=== PATIENT | female | born 1960 | race Caucasian/White ===

== ENCOUNTER → 2016-08-06 | Outpatient (CLI) | payer OTHER ==
[~2016-08-06] MED LIST: ADVA250A INH; ADVAI250I PO; CARV6.25 PO; CARV6.252 PO; CETI10 PO; CETI10CH PO; CONTOUR2 XX; GLUCTAB OR; LISI10TA PO; LISI20TA PO; METF500T PO; VENTAER INH
[2016-08-06 09:18] LABS: HEMATOCRIT 35.4 % (35.0-46.0); MEAN CELL VOLUME 87.7 FL (80.0-100.0); MEAN CORPUSCULAR HEMOGLOBIN 29.7 PG (27.0-34.0); MEAN CORPUSCULAR HGB CONC 33.9 % (32.0-36.0); PLATELET COUNT 342 TH/MM3 (150-450); RED BLOOD COUNT 4.04 MIL/MM3 (4.00-5.30); REVIEW FLAG FINAL; WHITE BLOOD COUNT 6.6 TH/MM3 (4.0-11.0)
[2016-08-06 09:51] LABS: ALKALINE PHOSPHATASE 101 U/L (45-117); ALT (GPT) 25 U/L (10-53); ANION GAP 7 MEQ/L (5-15); AST (GOT) 13 U/L (15-37); BICARBONATE 29.4 MEQ/L (21.0-32.0); BLOOD UREA NITROGEN 17 MG/DL (7-18); CHLORIDE 100 MEQ/L (98-107); GLOMERULAR FILTRATION RATE 74 ML/MIN (>89); GLUCOSE,FASTING 101 MG/DL (74-99); HDL CHOLESTEROL 59.8 MG/DL (40.0-60.0); LDL CHOLESTEROL 94 MG/DL (0-99); POTASSIUM 4.5 MEQ/L (3.5-5.1); SODIUM (NA) 136 MEQ/L (136-145); TOTAL BILIRUBIN ADULT 0.3 MG/DL (0.2-1.0)
[2016-08-06 10:31] LABS: HEMOGLOBIN A1a 1.1 %; HEMOGLOBIN LA1C 2.1 %; HEMOGLOBIN P3 5.7 %
== END ==
LOC: CLAB 08:52
PROVIDERS: ATTEND Physician Assistant Medical
DX: I10 Essential (primary) hypertension (principal); E11.9 Type 2 diabetes mellitus without complications
CPT/HCPCS: 36415; 80053; 80061; 83036; 84443; 85027

== ENCOUNTER 2016-12-20 11:21 | Emergency (ER) | payer OTHER ==
[~2016-12-20] VITALS: Ht 162.6 cm; Wt 85.0 kg
[~2016-12-20 11:21] MED LIST changes: -ADVAI250I PO; -CARV6.252 PO; -CETI10CH PO; -CONTOUR2 XX; -GLUCTAB OR; -LISI10TA PO
[2016-12-20 11:22] VITALS: BP 126/80; PULSE 114; RESP 24; TEMP 99; O2SAT 95
[2016-12-20] MEDS ORDERED: RESP: ALBUTEROL 2.5 MG/IPRATROPIUM 0.5 MG NEB (SCH) NEB ONE (12:00)
[2016-12-20] MEDS ORDERED: IBUPROFEN 400 MG TAB PO ONE (12:00)
[2016-12-20] MEDS ORDERED: ONDANSETRON ODT 4 MG TAB PO ONE (12:00)
--- NOTE | 2016-12-20 12:32 | RADRPT ---
EXAM DATE/TIME: 12/20/2016 12:19 [facility] COMPARISON: No previous studies available for comparison. INDICATIONS : Congestion, shortness of breath, and cough. MEDICAL HISTORY : None. SURGICAL HISTORY : None. ENCOUNTER: Initial ACUITY: 1 day PAIN SCORE: 0/10 LOCATION: Bilateral chest FINDINGS: PA and lateral views of the chest demonstrate the lungs to be symmetrically aerated without evidence of mass, infiltrate or effusion. The cardiomediastinal contours are unremarkable. Osseous structure s are intact. CONCLUSION: No acute disease. David Triplett MD on December 20, 2016 at 12:30 Board Certified Radiologist. This report was verified electronically.
[2016-12-20] MEDS ORDERED: ZITHTAB PO (13:58)
--- NOTE | 2016-12-20 13:58 | PD ---
HPI Chief Complaint: Cold / Flu Symptoms Time Seen by Provider: 11:35 Travel History International Travel<30 days: No Contact w/Intl Traveler<30days: No Traveled to known affect area: No History of Present Illness HPI Patient is a 56 year old female who comes in complaining of cough and congestion for the past week. She says that she felt better for a day and then got worse again. She says she feels like she needs a breathing treatment. She says she has had chills and felt feverish, but has not taken her temperature. She had vomiting last night, but was able to drink coffee this morning without vomiting. She denies any abdominal pain. PFSH Past Medical History Asthma: Yes Autoimmune Disease: No Blood Disorders: No Heart Rhythm Problems: No Cancer: No Cardiovascular Problems: Yes High Cholesterol: No Congestive Heart Failure: No COPD: No Diabetes: Yes Patient Takes Glucophage: Yes (metformin 500 bid) Diminished Hearing: No Glaucoma: No Hypertension: Yes Psychiatric: No Respiratory: Yes (ASTHMA) Myocardial Infarction: No Sleep Apnea: No Menopausal: Yes : 3 Para: 3 Tubal Ligation: Yes Past Surgical History Genitourinary Surgery: No Pacemaker: No Tonsillectomy: Yes Other Surgery: Yes (ESOPHAGEAL DILATION) Social History Alcohol Use: No Tobacco Use: No Substance Use: No Allergies-Medications (Allergen,Severity, Reaction): Coded Allergies: No Known Allergies (Verified , 08/12/16) Reported Meds & Prescriptions Reported Meds & Active Scripts Active Lisinopril-Hctz 20-12.5 Mg Tab 1 Tab PO DAILY Coreg (Carvedilol) 6.25 Mg Tab 6.25 Mg PO BID Metformin (Metformin HCl) 500 Mg Tab 500 Mg PO BIDPC With meals Ventolin Hfa 18 GM Inh (Albuterol Sulfate) 90 Mcg/Act Aer 1 Puff INH Q4H PRN Advair Diskus Inh (Fluticasone-Salmeterol Inh) 250-50 Mcg/Blist Aer 1 Puff INH BID Rinse mouth after use. Reported Cetirizine (Cetirizine HCl) 10 Mg Tab 10 Mg PO DAILY Review of Systems Except as stated in HPI: all other systems reviewed are Neg General / Constitutional: No: Fever, Chills HENT: No: Headaches, Lightheadedness Cardiovascular: No: Chest Pain or Discomfort Respiratory: Positive: Cough, Shortness of Breath Gastrointestinal: Positive: Nausea, Vomiting, No: Abdominal Pain Genitourinary: No: Dysuria Musculoskeletal: Positive: Myalgias, No: Edema Skin: No Rash, No Change in Pigmentation Neurologic: No: Weakness, Dizziness Physical Exam Narrative GENERAL: Awake and alert, in no acute distress. SKIN: Focused skin assessment warm/dry. HEAD: Atraumatic. Normocephalic. EYES: Pupils equal and round. No scleral icterus. ENT: Mucous membranes pink and moist. NECK: Trachea midline. No JVD. CARDIOVASCULAR: Regular rate and rhythm. No murmur appreciated. RESPIRATORY: No accessory muscle use. Clear to auscultation. Breath sounds equal bilaterally. GASTROINTESTINAL: Abdomen soft, non-tender, nondistended. MUSCULOSKELETAL: No obvious deformities. No clubbing. No cyanosis. No edema. NEUROLOGICAL: Awake and alert. No obvious cranial nerve deficits. Motor grossly within normal limits. Normal speech. PSYCHIATRIC: Appropriate mood and affect; insight and judgment normal. Data Data Last Documented VS Vital Signs Date Time Temp Pulse Resp B/P Pulse Ox O2 Delivery O2 Flow Rate FiO2 12/20/16 11:39 18 Room Air 12/20/16 11:22 99.0 114 126/80 95 Orders Albuterol-Ipratropium Neb (Duoneb Neb) (12/20/16 12:00) Ibuprofen (Motrin) (12/20/16 12:00) Ondansetron Odt (Zofran Odt) (12/20/16 12:00) Chest, Pa & Lat (12/20/16 ) MDM Medical Decision Making Medical Screen Exam Complete: Yes Emergency Medical Condition: Yes Medical Record Reviewed: Yes Differential Diagnosis Viral illness versus bronchitis versus pneumonia Narrative Course Patient is a 56-year-old female comes in complaining of cough and congestion. Exam shows no acute abnormalities. She is requesting a breathing treatment. Given 1 DuoNeb. Given ibuprofen and Zofran. She reports feeling better. She is advised to use her albuterol inhaler at home. We'll discharge with azithromycin. Chest x-ray shows no acute abnormalities. Diagnosis Primary Impression: Bronchitis Patient Instructions: Acute Bronchitis (ED), General Instructions Additional Instructions: Use your albuterol inhaler as needed for cough and shortness of breath. Take all of the antibiotic. Follow-up with her doctor. Return to the emergency department as needed for any worsening symptoms. Scripts Azithromycin (Zithromax Z-Ramone)250 Mg [id number] Mg PO DIRECTED #1 DSPK Ref 0 500 MG (2 tabs) day 1, then 1 tab days 2-5. Prov:Crystal Sims MD 12/20/16 Disposition: 01 DISCHARGE HOME Condition: Stable Crystal Sims MD Dec 20, 2016 13:58
== END 2016-12-20 14:11 | disposition home or self-care (01) ==
LOC: NEPD 11:21
DX: J40 Bronchitis, not specified as acute or chronic (principal); R11.2 Nausea with vomiting, unspecified; J45.909 Unspecified asthma, uncomplicated; E11.9 Type 2 diabetes mellitus without complications; I10 Essential (primary) hypertension; Z79.52 Long term (current) use of systemic steroids; Z79.899 Other long term (current) drug therapy
CPT/HCPCS: 71020; 94664; 99283

== ENCOUNTER 2016-12-24 02:32 | Observation (INO) | payer OTHER ==
[2016-12-24] VITALS (8 sets, daily range): BP systolic 102–136; BP diastolic 55–81; PULSE 77–86; RESP 16–19; TEMP 98.4–99; O2SAT 92–98
[~2016-12-24] VITALS: Ht 162.6 cm; Wt 85.0 kg
[~2016-12-24 02:32] MED LIST changes: +ZITHTAB PO
[2016-12-24] MEDS ORDERED: SODIUM CHLOR 0.9% 1000 ML INJ 1,000 ML IV ONE (02:54)
[2016-12-24] MEDS ORDERED: SODIUM CHLORIDE 0.9% FLUSH 10 ML FLUSH IVF PRN (03:00)
[2016-12-24 03:17] LABS: AUTOMATED NEUTROPHIL # 3.1 TH/MM3 (1.8-7.7); BASOPHIL % 0.4 % (0.0-2.0); EOSINOPHIL % 0.8 % (0.0-4.0); HEMATOCRIT 34.4 % (35.0-46.0); HEMO FLAGS DIFF FINAL; LYMPH % 29.7 % (9.0-44.0); LYMPHOCYTE # 1.6 TH/MM3 (1.0-4.8); MEAN CELL VOLUME 88.2 FL (80.0-100.0); MEAN CORPUSCULAR HEMOGLOBIN 30.3 PG (27.0-34.0); MEAN CORPUSCULAR HGB CONC 34.3 % (32.0-36.0); MONO % 11.7 % (0.0-8.0); NEUT % 57.4 % (16.0-70.0); PLATELET COUNT 265 TH/MM3 (150-450); RED CELL DISTRIBUTION WIDTH 13.3 % (11.6-17.2); WHITE BLOOD COUNT 5.4 TH/MM3 (4.0-11.0)
--- NOTE | 2016-12-24 03:19 | RADRPT ---
EXAM DATE/TIME: 12/24/2016 03:09 [facility] COMPARISON: No previous studies available for comparison. INDICATIONS : Left ankle pain post fall. MEDICAL HISTORY : None. SURGICAL HISTORY : None. ENCOUNTER: Initial ACUITY: 1 day PAIN SCORE: 4/10 LOCATION: Left ankle. FINDINGS: Three view exam was performed of the left ankle. The bony structures are in normal alignment. No ev idence of fracture, dislocation, or soft tissue swelling. The ankle mortise is intact. No radiopaqu e foreign bodies are seen. Bony mineralization is normal. There is a heel spur plantar surface of th e calcaneus. CONCLUSION: No acute fracture or joint dislocation. Brett Hamilton MD on December 24, 2016 at 3:17 Board Certified Radiologist. This report was verified electronically.
--- NOTE | 2016-12-24 03:19 | RADRPT ---
EXAM DATE/TIME: 12/24/2016 03:07 [facility] COMPARISON: No previous studies available for comparison. INDICATIONS : Right ankle pain post fall. MEDICAL HISTORY : None. SURGICAL HISTORY : None. ENCOUNTER: Initial ACUITY: 1 day PAIN SCORE: 4/10 LOCATION: Right ankle. FINDINGS: Three view exam was performed of the right ankle. The bony structures are in normal alignment. No e vidence of fracture, dislocation. There is soft tissue swelling around the lateral malleolus. The an kle mortise is intact. No radiopaque foreign bodies are seen. Bony mineralization is normal. Small heel spur. CONCLUSION: Soft tissue swelling along the lateral malleolus. No acute fracture or joint dislocation. Brett Hamilton MD on December 24, 2016 at 3:16 Board Certified Radiologist. This report was verified electronically.
--- NOTE | 2016-12-24 03:19 | RADRPT ---
EXAM DATE/TIME: 12/24/2016 03:06 [facility] COMPARISON: CHEST SINGLE AP, October 31, 2014, 0:51. INDICATIONS : Syncopal episode. MEDICAL HISTORY : None. SURGICAL HISTORY : None. ENCOUNTER: Initial ACUITY: 1 day PAIN SCORE: 0/10 LOCATION: Bilateral chest FINDINGS: A single view of the chest demonstrates the lungs to be symmetrically aerated without evidence of mas s, infiltrate or effusion. The cardiomediastinal contours are unremarkable. Osseous structures are intact. CONCLUSION: No acute disease. No significant change has occurred. Brett Hamilton MD on December 24, 2016 at 3:18 Board Certified Radiologist. This report was verified electronically.
--- NOTE | 2016-12-24 03:21 | RADRPT ---
EXAM DATE/TIME: 12/24/2016 03:15 [facility] COMPARISON: No previous studies available for comparison. INDICATIONS : Syncope. RADIATION DOSE: 49.83 CTDIvol (mGy) MEDICAL HISTORY : None SURGICAL HISTORY : None. ENCOUNTER: Initial ACUITY: 1 day PAIN SCALE: 6/10 LOCATION: cranial TECHNIQUE: Multiple contiguous axial images were obtained of the head. Using automated exposure control and adj ustment of the mA and/or kV according to patient size, radiation dose was kept as low as reasonably a chievable to obtain optimal diagnostic quality images. DICOM format image data is available electro nically for review and comparison. FINDINGS: CEREBRUM: The ventricles are normal for age. No evidence of midline shift, mass lesion, hemorrhage or acute in farction. No extra-axial fluid collections are seen. POSTERIOR FOSSA: The cerebellum and brainstem are intact. The 4th ventricle is midline. The cerebellopontine angle i s unremarkable. EXTRACRANIAL: The visualized portion of the orbits is intact. Mild chronic bilateral maxillary sinus disease. SKULL: The calvaria is intact. No evidence of skull fracture. CONCLUSION: Unremarkable CT scan of the brain. Brett Hamilton MD on December 24, 2016 at 3:18 Board Certified Radiologist. This report was verified electronically.
[2016-12-24 03:29] LABS: ALT (GPT) 30 U/L (10-53); ANION GAP 13 MEQ/L (5-15); AST (GOT) 27 U/L (15-37); BICARBONATE 23.2 MEQ/L (21.0-32.0); BLOOD UREA NITROGEN 22 MG/DL (7-18); CHLORIDE 101 MEQ/L (98-107); GLOMERULAR FILTRATION RATE 67 ML/MIN (>89); MAGNESIUM 1.7 MG/DL (1.5-2.5); POTASSIUM 3.5 MEQ/L (3.5-5.1); SODIUM (NA) 137 MEQ/L (136-145)
[2016-12-24 03:32] LABS: APTT (PATIENT) 25.8 SEC (24.3-30.1); PROTHROMBIN TIME - PATIENT 10.7 SEC (9.8-11.6)
[2016-12-24 03:33] LABS: ALKALINE PHOSPHATASE 81 U/L (45-117); TOTAL BILIRUBIN ADULT 0.3 MG/DL (0.2-1.0)
[2016-12-24 03:39] LABS: CREATINE KINASE 48 U/L (26-192)
[2016-12-24 03:44] LABS: BACTERIA, URINE MOD /hpf; BLOOD, URINE NEG (NEG); COMMENT (UR) CULTURE INDICATED; CULTURE IF INDICATED CULTURE INDICATED; GLUCOSE,URINE NEG (NEG); HYALINE CAST, URINE 1 /lpf (RARE); KETONE, URINE 10 mg/dL (NEG); MUCUS URINE FEW /lpf (OCC); NITRITE,URINE NEG (NEG); RENAL EPITHELIAL CELLS <1 /hpf; SQUAMOUS EPITHELIAL CELL URINE 5 /hpf (0-5); URINE COLOR YELLOW (YELLW/STRAW)
--- NOTE | 2016-12-24 04:10 | PD ---
HPI Chief Complaint: Syncope/Near-Syncope Time Seen by Provider: 03:53 Travel History International Travel<30 days: No Contact w/Intl Traveler<30days: No Traveled to known affect area: No History of Present Illness HPI Patient is a 56-year-old female with history of hypertension, hyperlipidemia who presents to emergency room after syncopal episode. She reports that she got up to use the restroom tonight, reports that she got to the bathroom and "passed out." Patient reports that she landed on her wooden floor, reports that she was out for a few minutes. Patient's was at bedside, reports that he had to put his hand into his 's mother and give her mouth to mouth until she regained consciousness. Reports that when this happened, patient appeared diaphoretic and pale. Patient denies any chest pain or shortness breath at this time. Patient reports only complains of bilateral ankle pain. Patient reports that she was recently treated for bronchitis here at [facility], reports that she is currently taking zpack [facility] Past Medical History Asthma: Yes Autoimmune Disease: No Blood Disorders: No Heart Rhythm Problems: No Cancer: No Cardiovascular Problems: Yes High Cholesterol: No Congestive Heart Failure: No COPD: No Diabetes: Yes Patient Takes Glucophage: No Diminished Hearing: No Glaucoma: No Hypertension: Yes Psychiatric: No Respiratory: Yes (ASTHMA) Myocardial Infarction: No Sleep Apnea: No Tetanus Vaccination: > 5 Years Influenza Vaccination: No Menopausal: Yes : 3 Para: 3 Tubal Ligation: Yes Past Surgical History Genitourinary Surgery: No Pacemaker: No Tonsillectomy: Yes Other Surgery: Yes (ESOPHAGEAL DILATION) Social History Alcohol Use: No Tobacco Use: No Substance Use: No Allergies-Medications (Allergen,Severity, Reaction): Coded Allergies: No Known Allergies (Verified , 12/24/16) Reported Meds & Prescriptions Reported Meds & Active Scripts Active Zithromax Z-Ramone (Azithromycin) 250 Mg Dspk 250 Mg PO DIRECTED 500 MG (2 tabs) day 1, then 1 tab days 2-5. Lisinopril-Hctz 20-12.5 Mg Tab 1 Tab PO DAILY Coreg (Carvedilol) 6.25 Mg Tab 6.25 Mg PO BID Metformin (Metformin HCl) 500 Mg Tab 500 Mg PO BIDPC With meals Ventolin Hfa 18 GM Inh (Albuterol Sulfate) 90 Mcg/Act Aer 1 Puff INH Q4H PRN Advair Diskus Inh (Fluticasone-Salmeterol Inh) 250-50 Mcg/Blist Aer 1 Puff INH BID Rinse mouth after use. Reported Cetirizine (Cetirizine HCl) 10 Mg Tab 10 Mg PO DAILY Review of Systems General / Constitutional: No: Fever Eyes: No: Visual changes HENT: No: Headaches Cardiovascular: No: Chest Pain or Discomfort Respiratory: No: Shortness of Breath Gastrointestinal: No: Abdominal Pain Genitourinary: No: Dysuria Musculoskeletal: No: Pain Skin: No Rash Neurologic: Positive: Syncope, No: Weakness Psychiatric: No: Depression Endocrine: No: Polydipsia Hematologic/Lymphatic: No: Easy Bruising Physical Exam Narrative GENERAL: NAD, Nontoxic SKIN: Focused skin assessment warm/dry. Abrasion to forehead HEAD: Atraumatic. Normocephalic. EYES: Pupils equal and round. No scleral icterus. No injection or drainage. ENT: No nasal bleeding or discharge. Mucous membranes pink and moist. NECK: Trachea midline. No JVD. CARDIOVASCULAR: Regular rate and rhythm. No murmur appreciated. RESPIRATORY: No accessory muscle use. Clear to auscultation. Breath sounds equal bilaterally. GASTROINTESTINAL: Abdomen soft, non-tender, nondistended. Hepatic and splenic margins not palpable. MUSCULOSKELETAL: No obvious deformities. No clubbing. No cyanosis. No edema. NEUROLOGICAL: Awake and alert. No obvious cranial nerve deficits. Motor grossly within normal limits. Normal speech. PSYCHIATRIC: Appropriate mood and affect; insight and judgment normal. Data Data Last Documented VS Vital Signs Date Time Temp Pulse Resp B/P Pulse Ox O2 Delivery O2 Flow Rate FiO2 12/24/16 04:07 86 18 106/59 97 Room Air 12/24/16 02:35 98.4 Orders Complete Blood Count With Diff (12/24/16 02:54) Comprehensive Metabolic Panel (12/24/16 02:54) Magnesium (Mg) (12/24/16 02:54) Ckmb (Isoenzyme) Profile (12/24/16 02:54) Troponin I (12/24/16 02:54) Act Partial Throm Time (Ptt) (12/24/16 02:54) Prothrombin Time / Inr (Pt) (12/24/16 02:54) Urinalysis - C+S If Indicated (12/24/16 02:54) Chest, Single Ap (12/24/16 02:54) Ct Brain W/O Iv Contrast(Rout) (12/24/16 02:54) Ecg Monitoring (12/24/16 02:54) Iv Access Insert/Monitor (12/24/16 02:54) Oximetry (12/24/16 02:54) Sodium Chloride 0.9% Flush (Ns Flush) (12/24/16 03:00) Sodium Chlor 0.9% 1000 Ml Inj (Ns 1000 M (12/24/16 02:54) Ankle, Complete (Unt6arr) (12/24/16 ) Ankle, Complete (Vio6hlm) (12/24/16 ) Urine Culture (12/24/16 03:28) Ceftriaxone Inj (Rocephin Inj) (12/24/16 04:15) Labs Laboratory Tests Test 12/24/16 12/24/16 03:06 03:28 White Blood Count 5.4 TH/MM3 Red Blood Count 3.90 MIL/MM3 Hemoglobin 11.8 GM/DL Hematocrit 34.4 % Mean Corpuscular Volume 88.2 FL Mean Corpuscular Hemoglobin 30.3 PG Mean Corpuscular Hemoglobin 34.3 % Concent Red Cell Distribution Width 13.3 % Platelet Count 265 TH/MM3 Mean Platelet Volume 7.3 FL Neutrophils (%) (Auto) 57.4 % Lymphocytes (%) (Auto) 29.7 % Monocytes (%) (Auto) 11.7 % Eosinophils (%) (Auto) 0.8 % Basophils (%) (Auto) 0.4 % Neutrophils # (Auto) 3.1 TH/MM3 Lymphocytes # (Auto) 1.6 TH/MM3 Monocytes # (Auto) 0.6 TH/MM3 Eosinophils # (Auto) 0.0 TH/MM3 Basophils # (Auto) 0.0 TH/MM3 CBC Comment DIFF FINAL Differential Comment Prothrombin Time 10.7 SEC Prothromb Time International 1.0 RATIO Ratio Activated Partial 25.8 SEC Thromboplast Time Sodium Level 137 MEQ/L Potassium Level 3.5 MEQ/L Chloride Level 101 MEQ/L Carbon Dioxide Level 23.2 MEQ/L Anion Gap 13 MEQ/L Blood Urea Nitrogen 22 MG/DL Creatinine 0.87 MG/DL Estimat Glomerular Filtration 67 ML/MIN Rate Random Glucose 125 MG/DL Calcium Level 8.2 MG/DL Magnesium Level 1.7 MG/DL Total Bilirubin 0.3 MG/DL Aspartate Amino Transf 27 U/L (AST/SGOT) Alanine Aminotransferase 30 U/L (ALT/SGPT) Alkaline Phosphatase 81 U/L Total Creatine Kinase 48 U/L Troponin I LESS THAN 0.02 NG/ML Total Protein 7.3 GM/DL Albumin 3.6 GM/DL Urine Color YELLOW Urine Turbidity HAZY Urine pH 5.0 Urine Specific Gilbert 1.027 Urine Protein 30 mg/dL Urine Glucose (UA) NEG mg/dL Urine Ketones 10 mg/dL Urine Occult Blood NEG Urine Nitrite NEG Urine Bilirubin NEG Urine Urobilinogen LESS THAN 2.0 MG/DL Urine Leukocyte Esterase TRACE Urine RBC 1 /hpf Urine WBC 4 /hpf Urine Squamous Epithelial 5 /hpf Cells Urine Renal Epithelial Cells <1 /hpf Urine Amorphous Sediment RARE Urine Bacteria MOD /hpf Urine Hyaline Casts 1 /lpf Urine Mucus FEW /lpf Microscopic Urinalysis Comment CULTURE INDICATED MDM Medical Decision Making Medical Screen Exam Complete: Yes Emergency Medical Condition: Yes Interpretation(s) EKG at 0246: NSR at 80bpm, qt/qtc: 347/383, no acute st or t wave changes Vital Signs Date Time Temp Pulse Resp B/P Pulse Ox O2 Delivery O2 Flow Rate FiO2 12/24/16 02:35 98.4 84 18 114/70 97 Differential Diagnosis Differential includes arrhythmia, ACS, CVA, TIA, electrolyte abnormality, vasovagal syncope Narrative Course Patient is a 56-year-old female who presents to emergency room after a syncopal episode. Patient was placed on a tailor apprentice upon arrival to the emergency room. Lab work including CT of head ordered. Vital Signs Date Time Temp Pulse Resp B/P Pulse Ox O2 Delivery O2 Flow Rate FiO2 12/24/16 02:35 98.4 84 18 114/70 97 Laboratory Tests Test 12/24/16 12/24/16 03:06 03:28 White Blood Count 5.4 TH/MM3 (4.0-11.0) Red Blood Count 3.90 MIL/MM3 (4.00-5.30) Hemoglobin 11.8 GM/DL (11.6-15.3) Hematocrit 34.4 % (35.0-46.0) Mean Corpuscular Volume 88.2 FL (80.0-100.0) Mean Corpuscular Hemoglobin 30.3 PG (27.0-34.0) Mean Corpuscular Hemoglobin 34.3 % Concent (32.0-36.0) Red Cell Distribution Width 13.3 % (11.6-17.2) Platelet Count 265 TH/MM3 (150-450) Mean Platelet Volume 7.3 FL (7.0-11.0) Neutrophils (%) (Auto) 57.4 % (16.0-70.0) Lymphocytes (%) (Auto) 29.7 % (9.0-44.0) Monocytes (%) (Auto) 11.7 % (0.0-8.0) Eosinophils (%) (Auto) 0.8 % (0.0-4.0) Basophils (%) (Auto) 0.4 % (0.0-2.0) Neutrophils # (Auto) 3.1 TH/MM3 (1.8-7.7) Lymphocytes # (Auto) 1.6 TH/MM3 (1.0-4.8) Monocytes # (Auto) 0.6 TH/MM3 (0-0.9) Eosinophils # (Auto) 0.0 TH/MM3 (0-0.4) Basophils # (Auto) 0.0 TH/MM3 (0-0.2) CBC Comment DIFF FINAL Differential Comment Prothrombin Time 10.7 SEC (9.8-11.6) Prothromb Time International 1.0 RATIO Ratio Activated Partial 25.8 SEC Thromboplast Time (24.3-30.1) Sodium Level 137 MEQ/L (136-145) Potassium Level 3.5 MEQ/L (3.5-5.1) Chloride Level 101 MEQ/L (98-107) Carbon Dioxide Level 23.2 MEQ/L (21.0-32.0) Anion Gap 13 MEQ/L (5-15) Blood Urea Nitrogen 22 MG/DL (7-18) Creatinine 0.87 MG/DL (0.50-1.00) Estimat Glomerular Filtration 67 ML/MIN (>89) Rate Random Glucose 125 MG/DL (74-106) Calcium Level 8.2 MG/DL (8.5-10.1) Magnesium Level 1.7 MG/DL (1.5-2.5) Total Bilirubin 0.3 MG/DL (0.2-1.0) Aspartate Amino Transf 27 U/L (15-37) (AST/SGOT) Alanine Aminotransferase 30 U/L (10-53) (ALT/SGPT) Alkaline Phosphatase 81 U/L (45-117) Total Creatine Kinase 48 U/L (26-192) Troponin I LESS THAN 0.02 NG/ML (0.02-0.05) Total Protein 7.3 GM/DL (6.4-8.2) Albumin 3.6 GM/DL (3.4-5.0) Urine Color YELLOW (YELLW/STRAW) Urine Turbidity HAZY (CLEAR) Urine pH 5.0 (5.0-8.5) Urine Specific Gilbert 1.027 (1.002-1.035) Urine Protein 30 mg/dL (NEG-TRACE) Urine Glucose (UA) NEG mg/dL (NEG) Urine Ketones 10 mg/dL (NEG) Urine Occult Blood NEG (NEG) Urine Nitrite NEG (NEG) Urine Bilirubin NEG (NEG) Urine Urobilinogen LESS THAN 2.0 MG/DL (LESS THAN 2.0) Urine Leukocyte Esterase TRACE (NEG) Urine RBC 1 /hpf (0-3) Urine WBC 4 /hpf (0-5) Urine Squamous Epithelial 5 /hpf (0-5) Cells Urine Renal Epithelial Cells <1 /hpf (NONE) Urine Amorphous Sediment RARE Urine Bacteria MOD /hpf (NONE) Urine Hyaline Casts 1 /lpf (RARE) Urine Mucus FEW /lpf (OCC) Microscopic Urinalysis Comment CULTURE INDICATED Last Impressions Head CT 12/24/16253 Signed Impressions: Service Date/Time: December 03:15 - CONCLUSION: Unremarkable CT scan of the brain. Brett Hamilton MD Chest X-Ray 12/24/164 Signed Impressions: Service Date/Time: December 03:06 - CONCLUSION: No acute disease. No significant change has occurred. Brett Hamilton MD Ankle X-Ray 12/24/16 0000 Signed Impressions: Service Date/Time: December 03:07 - CONCLUSION: Soft tissue swelling along the lateral malleolus. No acute fracture or joint dislocation. Brett Hamilton MD Ankle X-Ray 12/24/16 0000 Signed Impressions: Service Date/Time: December 03:09 - CONCLUSION: No acute fracture or joint dislocation. Brett Hamilton MD All labs and all studies reviewed patient in detail. Plan to observe for syncope overnight. Will treat for her urinary tract infection. case reviewed with dr. cobb who accepts pt to service Diagnosis Primary Impression: Syncope and collapse Additional Impression: UTI (urinary tract infection) Admitting Information Admitting Physician Requests: Observation Kimberly Newman DO Dec 24, 2016 04:10
[2016-12-24] MEDS ORDERED: cefTRIAXone INJ 1,000 MG in SODIUM CHLORIDE 0.9% INJ 100 ML IV ONE (04:15)
[2016-12-24] MEDS ORDERED: SODIUM CHLORIDE 0.9% FLUSH 10 ML FLUSH IV FLUSH PRN (04:30)
[2016-12-24] MEDS ORDERED: NALOXONE HCL 0.4 MG/ML AMP IV PRN (04:30)
--- NOTE | 2016-12-24 05:05 | HHI.HP ---
HPI Service [facility] Primary Care Physician Flor Blackwood MD Admission Diagnosis Syncope Diagnoses: Travel History International Travel<30 Days: No Contact w/Intl Traveler <30 Da: No Traveled to Known Affected Are: No History of Present Illness History from patient, ER physician communication, and review of medical records. Patient reported that she was having some bronchitis recently and came to emergency room about 4 days ago. She stated she was prescribed azithromycin at that time. She states that she was taking this antibiotics, she started having diarrhea. About 4-5 times a day. Denies black color stool or red color stool. She states that this diarrhea weekend her so much. Last night, she used her bathroom, and was walking towards the door and started feeling some dizziness, lightheadedness, with profuse sweating. Next thing she knows, she fell out and passed out. report she did hit her head She denies being on blood thinners at home. Does report of some low-grade fever about a week ago. Currently, she does not feel warm. She also denies fever at the [facility]. Review of Systems Except as stated in HPI: all other systems reviewed are Neg Past Family Social History Past Medical History htn dm chf obesity asthma live with and kids still driving Past Surgical History tubal ligation Allergies: Coded Allergies: No Known Allergies (Verified , 12/24/16) Family History dm in mothers side father- esrd Social History denies smoking/ etoh abuse/ drug abuse Physical Exam Vital Signs Vital Signs Date Time Temp Pulse Resp B/P Pulse Ox O2 Delivery O2 Flow Rate FiO2 12/24/16 04:07 86 18 106/59 97 Room Air 12/24/16 02:35 98.4 84 18 114/70 97 12/24/16 02:35 18 98 Room Air Physical Exam GENERAL: This is a well-nourished, well-developed patient, in no apparent distress. SKIN: No rashes, ecchymoses or lesions. Cool and dry. HEAD: Atraumatic. Normocephalic. No temporal or scalp tenderness. EYES: No scleral icterus. No injection or drainage. ENT: Nose without bleeding, purulent drainage or septal hematoma. Airway patent. NECK: Trachea midline. No JVD CARDIOVASCULAR: Regular rate and rhythm without murmurs, gallops, or rubs. RESPIRATORY: Clear to auscultation. Breath sounds equal bilaterally. No wheezes , rales, or rhonchi. GASTROINTESTINAL: Abdomen soft, non-tender, nondistended. No guarding MUSCULOSKELETAL: Extremities without clubbing, cyanosis, or edema. No calf tenderness. NEUROLOGICAL: Awake and alert. Motor and sensory grossly within normal limits. Normal speech. Laboratory Laboratory Tests Test 12/24/16 12/24/16 03:06 03:28 White Blood Count 5.4 Red Blood Count 3.90 Hemoglobin 11.8 Hematocrit 34.4 Mean Corpuscular Volume 88.2 Mean Corpuscular Hemoglobin 30.3 Mean Corpuscular Hemoglobin 34.3 Concent Red Cell Distribution Width 13.3 Platelet Count 265 Mean Platelet Volume 7.3 Neutrophils (%) (Auto) 57.4 Lymphocytes (%) (Auto) 29.7 Monocytes (%) (Auto) 11.7 Eosinophils (%) (Auto) 0.8 Basophils (%) (Auto) 0.4 Neutrophils # (Auto) 3.1 Lymphocytes # (Auto) 1.6 Monocytes # (Auto) 0.6 Eosinophils # (Auto) 0.0 Basophils # (Auto) 0.0 CBC Comment DIFF FINAL Differential Comment Prothrombin Time 10.7 Prothromb Time International 1.0 Ratio Activated Partial 25.8 Thromboplast Time Sodium Level 137 Potassium Level 3.5 Chloride Level 101 Carbon Dioxide Level 23.2 Anion Gap 13 Blood Urea Nitrogen 22 Creatinine 0.87 Estimat Glomerular Filtration 67 Rate Random Glucose 125 Calcium Level 8.2 Magnesium Level 1.7 Total Bilirubin 0.3 Aspartate Amino Transf 27 (AST/SGOT) Alanine Aminotransferase 30 (ALT/SGPT) Alkaline Phosphatase 81 Total Creatine Kinase 48 Troponin I LESS THAN 0.02 Total Protein 7.3 Albumin 3.6 Urine Color YELLOW Urine Turbidity HAZY Urine pH 5.0 Urine Specific [place] 1.027 Urine Protein 30 Urine Glucose (UA) NEG Urine Ketones 10 Urine Occult Blood NEG Urine Nitrite NEG Urine Bilirubin NEG Urine Urobilinogen LESS THAN 2.0 Urine Leukocyte Esterase TRACE Urine RBC 1 Urine WBC 4 Urine Squamous Epithelial 5 Cells Urine Renal Epithelial Cells <1 Urine Amorphous Sediment RARE Urine Bacteria MOD Urine Hyaline Casts 1 Urine Mucus FEW Microscopic Urinalysis Comment CULTURE INDICATED Date/Time Procedure Status Source Growth 12/24/16 03:28 Urine Culture Received Urine Random Urine Pending Result Diagram: 12/24/16 0306 12/24/16 0306 Imaging Last [address] 12/24/164 Signed Impressions: Service Date/Time: , December 24, 2016 03:15 - CONCLUSION: Unremarkable CT scan of the brain. Brett Hamilton MD Chest X-Ray 12/24/16253 Signed Impressions: Service Date/Time: , December 24, 2016 03:06 - CONCLUSION: No acute disease. No significant change has occurred. Brett Hamilton MD Ankle X-Ray 12/24/16 0000 Signed Impressions: Service Date/Time: , December 24, 2016 03:07 - CONCLUSION: Soft tissue swelling along the lateral malleolus. No acute fracture or joint dislocation. Brett Hamilton MD Ankle X-Ray 12/24/16 0000 Signed Impressions: Service Date/Time: December 03:09 - CONCLUSION: No acute fracture or joint dislocation. Brett Hamilton MD Assessment and Plan Assessment and Plan Impression: Syncopevasovagal. Likely from dehydration/diarrhea. Diarrhealikely antibiotics related since its onset is pretty much the same day as the use of antibiotics. Would need to rule out C. difficile. UTI- foul smelling urine with abnormal UA Hypertension Diabetes CHFas per patient's report Obesity Asthma Plan: IV hydration with normal saline at 84 cc per hour. Stool for C. difficile. Echo Carotid sono. Orthostatic BP Rocephin 1g iv q24hrs for UTI Nebs prn hold antihypertensives fingersticks and sliding scale hold metformin DVT prophylaxis with lovenox Discussed Condition With patient, ER Vania Howard MD Dec 24, 2016 05:05
[2016-12-24] MEDS: SODIUM CHLOR 0.9% 1000 ML INJ 1,000 ML IV SCH ×3 (05:59→18:09)
[2016-12-24] MEDS ORDERED: GLUCAGON 1 MG/ML VIAL OTHER PRN (06:00)
[2016-12-24] MEDS ORDERED: DEXTROSE 50% IN WATER 50 ML VIAL(D50) IV PRN (06:00)
[2016-12-24] MEDS ORDERED: RESP: ALBUTEROL 2.5 MG/IPRATROPIUM 0.5 MG NEB (PRN) NEB (06:00)
[2016-12-24] MEDS: INSULIN ASPART SUPPLEMENTAL SCALE SQ SCH ×4 (07:00→21:00)
--- NOTE | 2016-12-24 09:25 | RADRPT ---
EXAM DATE/TIME: 12/24/2016 08:38 [place] COMPARISON: No previous studies available for comparison. INDICATIONS : Syncope. MEDICAL HISTORY : Hypertension. Diabetic. SURGICAL HISTORY : Tonsillectomy. Esophogeal dilation. ENCOUNTER: Initial ACUITY: 1 day PAIN SCORE: 3/10 LOCATION: Bilateral neck PEAK SYSTOLIC VELOCITIES (cm/sec): ICA/CCA RATIO: Right: 1.1 Left: 0.8 ICA: Right: 89 Left: 82 CCA: Right: 83 Left: 98 ECA: Right: 89 Left: 79 VERTEBRAL: Right: 59 antegrade Left: 61 antegrade Elevated flow velocities and ICA/CCA ratios have been found to correlate with increased degrees of vessel stenosis, calculated as percentage of diameter relative to a normal segment of distal ICA/CCA FINDINGS: RIGHT CAROTID: No significant stenosis is visualized. Minimal plaque. The waveforms are within normal limits. LEFT CAROTID: No significant stenosis is visualized. Minimal plaque. The waveforms are within normal limits. VERTEBRAL ARTERIES: Antegrade flow is seen in both vertebral arteries. MISCELLANEOUS: None. CONCLUSION: No hemodynamically significant stenosis in either carotid artery. Emerson Pillai MD on December 24, 2016 at 9:23 Board Certified Radiologist. This report was verified electronically.
[2016-12-24] MEDS: SODIUM CHLORIDE 0.9% FLUSH 10 ML FLUSH IV FLUSH SCH ×2 (10:54→21:00)
[2016-12-24] MEDS: ENOXAPARIN SODIUM 40 MG/0.4 ML SYRINGE SQ SCH (10:54)
[2016-12-24 12:58] LABS: CREATINE KINASE 133 U/L (26-192)
--- NOTE | 2016-12-24 14:25 | ECHRPT ---
Indication: CONCLUSIONS In limited views, the left ventricular systolic function is mildly reduced with an estimated ejectio n fraction in the range of 45-50%. There was limited left ventricular wall motion assessment due to poor endocardial visualization. Mild mitral valve regurgitation. There is mild tricuspid valve regurgitation. BP: / HR: Rhythm: MEASUREMENTS (Male / Female) Normal Values Technical Quality: 2D ECHO LV Diastolic Diameter PLAX 4.4 cm 4.2 - 5.9 / 3.9 - 5.3 cm LV Systolic Diameter PLAX 3.4 cm IVS Diastolic Thickness 0.9 cm 0.6 - 1.0 / 0.6 - 0.9 cm LVPW Diastolic Thickness 0.9 cm 0.6 - 1.0 / 0.6 - 0.9 cm LV Relative Wall Thickness 0.4 RV Internal Dim ED PLAX 2.9 cm M-MODE Aortic Root Diameter MM 2.7 cm LA Systolic Diameter MM 3.2 cm LA Ao Ratio MM 1.2 AV Cusp Separation MM 1.6 cm DOPPLER Mitral E Point Velocity 63.2 cm/s Mitral A Point Velocity 85.4 cm/s Mitral E to A Ratio 0.7 LV E' Lateral Velocity 8.9 cm/s Mitral E to LV E' Lateral Ratio 7.1 LV E' Septal Velocity 9.4 cm/s Mitral E to LV E' Septal Ratio 6.8 TR Peak Velocity 274.0 cm/s TR Peak Gradient 30.0 mmHg FINDINGS LEFT VENTRICLE Normal left ventricular size. Wall thickness is normal. In limited views, the left ventricular systolic function is mildly reduced with an estimated ejectio n fraction in the range of 45-50%. There was limited left ventricular wall motion assessment due to poor endocardial visualization. RIGHT VENTRICLE Normal right ventricular size and systolic function. LEFT ATRIUM The left atrial size is normal. RIGHT ATRIUM The right atrial size is normal. ATRIAL SEPTUM The interatrial septum not well visualized. AORTA The aortic root and proximal ascending aorta are not well visualized. MITRAL VALVE Structurally normal mitral valve. Mild mitral valve regurgitation. No mitral valve stenosis. AORTIC VALVE The aortic valve is not well visualized. No aortic valve regurgitation. No aortic valve stenosis. TRICUSPID VALVE Structurally normal tricuspid valve. There is mild tricuspid valve regurgitation. PULMONARY VALVE The pulmonary valve is not well visualized. PERICARDIUM No pericardial effusion. Dante Chino DO (Electronically Signed) Final Date:24 December 2016 14:23
--- NOTE | 2016-12-24 14:53 | EKG ---
Date Performed: 12/24/2016 Time Performed: 02:46:32 PTAGE: 56 years EKG: Sinus rhythm NORMAL ECG Compared to prior tracing no significant change PREVIOUS TRACING : 02/25/2015 23.02 DOCTOR: Penny Lopez Interpretating Date/Time 12/24/2016 14:51:56
--- NOTE | 2016-12-24 15:17 | HHI.PR ---
Subjective Remarks The patient was diagnosed with bronchitis last week. She had been having cough and chest congestion, which has improved some but not completely resolved. She was on azithromycin for 4 days. She has been having poor appetite, but no vomiting. She has been having loose stools, one episode of loose stool since admission. She states that yesterday she was in the bathroom having a bowel movement, stood up, and passed out before she got to the bathroom door. She did hit the back of her ankles when she fell, was diagnosed with an ankle sprain in the ED. She reports that she regained consciousness shortly thereafter. She denies any chest pain or shortness of breath. She did used to follow with Dr. Velez of cardiology for a "leaky heart valve". Objective Vitals Vital Signs Date Time Temp Pulse Resp B/P Pulse Ox O2 Delivery O2 Flow Rate FiO2 12/24/16 13:07 99.0 86 16 108/60 96 103/55 104/61 12/24/16 08:22 98.8 82 19 105/64 96 104/58 107/59 12/24/16 05:48 98.6 82 18 102/68 92 12/24/16 04:07 86 18 106/59 97 Room Air 12/24/16 02:35 98.4 84 18 114/70 97 12/24/16 02:35 18 98 Room Air Result Diagram: 12/24/16 0306 12/24/16 0306 Imaging Last Impressions Head CT 12/24/16253 Signed Impressions: Service Date/Time: December 03:15 - CONCLUSION: Unremarkable CT scan of the brain. Brett Hamilton MD Chest X-Ray 12/24/16 0254 Signed Impressions: Service Date/Time: December 03:06 - CONCLUSION: No acute disease. No significant change has occurred. Brett Hamilton MD Carotid Artery Ultrasound 12/24/16 0000 Signed Impressions: Service Date/Time: December 08:38 - CONCLUSION: No hemodynamically significant stenosis in either carotid artery. Emerson Pillai MD Ankle X-Ray 12/24/16 0000 Signed Impressions: Service Date/Time: December 03:07 - CONCLUSION: Soft tissue swelling along the lateral malleolus. No acute fracture or joint dislocation. Brett Hamilton MD Objective Remarks GENERAL: Well-developed well-nourished. In no acute distress. SKIN: Warm and dry. No lesions noted. HEENT: Normocephalic. Pupils equal and round. Mucous membranes pink and moist. CARDIOVASCULAR: Regular rate and rhythm. No murmur appreciated. RESPIRATORY: No accessory muscle use. Clear to auscultation. Breath sounds equal bilaterally. GASTROINTESTINAL: Abdomen soft, non-tender, nondistended. Bowel sounds x4. MUSCULOSKELETAL: No obvious deformities. No clubbing or cyanosis. No edema. NEUROLOGICAL: Awake and alert. No focal neurological deficits. Moves upper and lower extremities spontaneously. Normal speech. Strength 5/5. PSYCHIATRIC: Appropriate mood and affect; insight and judgment normal. A/P Assessment and Plan 56-year-old female with a past medical history of HTN, CHF, DM, asthma with recently diagnosed bronchitis who presented after a syncopal episode Syncope: Sounds vasovagal, likely secondary to recent dehydration from diarrhea and poor oral intake. Possibly BP is over controlled on home antihypertensives. Reviewed: Troponin negative 2. Echocardiogram with mild reduction in systolic function EF 4550 %, with no significant valvular abnormalities. EKG with NSR, no significant change from previous. Carotid ultrasound with no significant stenosis. Head CT unremarkable. Not orthostatic, but BP is soft. Labs without signs of dehydration. Afebrile with no leukocytosis. -IVF -PT eval -Monitor on telemetry -Consult patient's contact worker lithography Dr. Velez Diarrhea: Possibly antibiotic associated. Check C. difficile. Start Lactinex. Abnormal UA: UA with evidence of possible UTI. Continue empiric IV Rocephin. Follow up urine culture. Bronchitis: Chest x-ray 4 days ago in the ED and today have been clear. Nebs as needed. Received azithromycin. On Rocephin as above. Diabetes mellitus: Hyperglycemic protocol. Monitor Accu-Cheks. SSI coverage if needed. Hypertension: Currently with hypotension. Hold home lisinopril, HCTZ, carvedilol until BP improves. Mild systolic CHF: Echocardiogram as above, none previous for comparison. Unclear chronicity. Continue carvedilol as BP allows. Cardiology consulted. DVT prophylaxis: SCDs Discharge Planning Follow-up PT results. Follow up cardiology recommendations. Monitor BP. Follow-up C. difficile. Vito Beach Dec 24, 2016 15:16
[2016-12-24] MEDS: LACTOBACILLUS ACIDOPHILUS TAB PO SCH (18:08)
[2016-12-24 19:10] LABS: CREATINE KINASE 147 U/L (26-192)
[2016-12-25] VITALS (7 sets, daily range): BP systolic 122–138; BP diastolic 71–76; PULSE 74–81; RESP 18; TEMP 97.9–98; O2SAT 95–96
[2016-12-25] MEDS ORDERED: cefTRIAXone INJ 1,000 MG in SODIUM CHLORIDE 0.9% INJ 100 ML IV SCH (05:00)
[2016-12-25 06:11] LABS: C. DIFF EPI 027 PRESUMPTIVE NEGATIVE (NEGATIVE); C. DIFF TOXIN PCR NEGATIVE (NEGATIVE)
[2016-12-25] MEDS: SODIUM CHLOR 0.9% 1000 ML INJ 1,000 ML IV SCH (06:34)
[2016-12-25] MEDS: INSULIN ASPART SUPPLEMENTAL SCALE SQ SCH (07:00)
--- NOTE | 2016-12-25 07:57 | PD.CONS ---
HPI Service CV Consult Requested By Reason for Consult syncope Primary Care Physician Flor Blackwood MD History of Present Illness Here with mild to moderate MR, HTN, Hyperlipidemia admitted for syncope. Recently she has been treated with Z-ramone for bronchitis and having diarrhea from that. Yesterday she was using the toilet and when she got up she felt dizzy and hot and had a syncopal episode. She denies any chest pain, shortness of breath or palpitations. She has seen us in the remote past with valvular heart disease and a h/o nonischemic cardiomyopathy Echo in 2007 did not show any MR. Review of Systems Consitutional: DENIES: Fatigue, Fever, Chills, Weight gain, Weight loss Eyes: DENIES: Amaurosis Fugax, Change in vision HEENT: COMPLAINS OF: Lightheadedness Respiratory: COMPLAINS OF: Cough Cardiovascular: COMPLAINS OF: See HPI Gastrointestinal: DENIES: Nausea, Vomiting, Change in bowel habits, Reflux, Bloody stools, Melena Genitourinary: DENIES: Urinary incontinence, Difficulty voiding Integumentary: DENIES: Rash Neurologic: DENIES: Tingling or numbness, Memory problems, Poor Balance, Stroke symptoms Musculoskeletal: DENIES: Joint pain, Muscle pain, Limited range of motion, Back pain Psychiatric: DENIES: Anxiety, Depression, Sleep disturbances Hematologic: DENIES: Bruising tendencies, Bleeding tendencies Endocrine: DENIES: Weight gain, Weight loss, Thyroid disease Past Family Social History Allergies: Coded Allergies: No Known Allergies (Verified , 12/24/16) Past Medical History see HPI Asthma type 2 diabetes GERD peripheral neuropathy Past Surgical History EGD with multiple dilations in the past tubal ligation tonsillectomy Reported Medications Reported Meds & Active Scripts Active Zithromax Z-Ramone (Azithromycin) 250 Mg Dspk 250 Mg PO DIRECTED 500 MG (2 tabs) day 1, then 1 tab days 2-5. Lisinopril-Hctz 20-12.5 Mg Tab 1 Tab PO DAILY Coreg (Carvedilol) 6.25 Mg Tab 6.25 Mg PO BID Metformin (Metformin HCl) 500 Mg Tab 500 Mg PO BIDPC With meals Ventolin Hfa 18 GM Inh (Albuterol Sulfate) 90 Mcg/Act Aer 1 Puff INH Q4H PRN Advair Diskus Inh (Fluticasone-Salmeterol Inh) 250-50 Mcg/Blist Aer 1 Puff INH BID Rinse mouth after use. Reported Cetirizine (Cetirizine HCl) 10 Mg Tab 10 Mg PO DAILY Active Ordered Medications Current Medications Medications (Trade) Dose Ordered Sig/Josue Route Start Time Stop Time Status Last Admin (NS Flush) 2 ml UNSCH PRN IV FLUSH 12/24/16 04:30 (NS Flush) 2 ml BID IV FLUSH 12/24/16 09:00 12/24/16 21:00 Naloxone HCl 0.4 mg 0.4 mg UNSCH PRN IV 12/24/16 04:30 Ceftriaxone Sodium 1000 mg/ Sodium Chloride 100 ml @ 200 mls/hr Q24H IV 12/25/16 05:00 12/25/16 06:47 (NS 1000 ml Inj) 1,000 ml @ 84 mls/hr [id number] IV 12/24/16 05:15 12/25/16 06:34 (D50w (Vial) Inj) 50 ml UNSCH PRN IV 12/24/16 06:00 (Glucagon Inj) 1 mg UNSCH PRN OTHER 12/24/16 06:00 (Lovenox Inj) 40 mg Q24H SQ 12/24/16 09:00 12/24/16 10:54 (Lactinex) 1 tab TID PO 12/24/16 18:00 12/24/16 18:08 Family History noncontributory Social History denies smoking, alcohol or substance abuse Physical Exam Vital Signs Vital Signs Date Time Temp Pulse Resp B/P Pulse Ox O2 Delivery O2 Flow Rate FiO2 12/25/16 07:27 79 125/76 124/75 12/25/16 07:14 97.9 76 18 122/71 96 12/25/16 05:04 81 12/25/16 03:30 98.0 74 18 138/76 95 133/74 12/25/16 00:00 79 12/24/16 23:09 99.0 77 18 136/81 95 12/24/16 19:17 98.9 85 18 129/72 96 12/24/16 15:49 93 21 12/24/16 13:07 99.0 86 16 108/60 96 103/55 104/61 12/24/16 08:22 98.8 82 19 105/64 96 104/58 107/59 Physical Exam GENERAL: Well-nourished, well-developed patient in no apparent distress. NECK: No JVD. No carotid bruit. CARDIOVASCULAR: Regular rate and rhythm. S1/S2 no murmur, rub, or gallop. RESPIRATORY: No accessory muscle use. Clear to auscultation. Breath sounds equal bilaterally. GASTROINTESTINAL: Abdomen soft, non-tender, nondistended. MUSCULOSKELETAL: Extremities without clubbing, cyanosis, or edema. Laboratory Laboratory Tests Test 12/24/16 12/24/16 12/25/16 11:58 18:06 03:35 Total Creatine Kinase 133 147 Troponin I LESS THAN 0.02 LESS THAN 0.02 Stool C. difficile Toxin (PCR) NEGATIVE Stl C. difficile Toxin PRESUMPTIVE Epiderm 027 NEGATIVE Date/Time Procedure Status Source Growth 12/24/16 03:28 Urine Culture Received Urine Random Urine Pending Result Diagram: 12/24/16 0306 12/24/16 0306 Assessment and Plan Problem List: (1) Syncope and collapse (2) Hyperlipidemia (3) Essential hypertension Assessment and Plan So far cardiac work up is negative with ECG NSR and negative troponin X 3, she can be discharged home from a CV standpoint Her blood pressure is well controlled Pee Fragoso Dec 25, 2016 07:57
[2016-12-25] MEDS: ENOXAPARIN SODIUM 40 MG/0.4 ML SYRINGE SQ SCH (08:35)
[2016-12-25] MEDS: LACTOBACILLUS ACIDOPHILUS TAB PO SCH (08:35)
[2016-12-25] MEDS: SODIUM CHLORIDE 0.9% FLUSH 10 ML FLUSH IV FLUSH SCH (08:36)
[2016-12-25] MEDS ORDERED: LISI-519 PO (09:02)
--- NOTE | 2016-12-25 09:04 | HHI.DCPOC ---
Discharge Care Plan Diagnosis: (1) Left ankle sprain (2) UTI (urinary tract infection) (3) Type II diabetes mellitus (4) Syncope and collapse Goals to Promote Your Health * To prevent worsening of your condition and complications * To maintain your health at the optimal level Directions to Meet Your Goals Take your medications as prescribed Follow your dietary instruction Follow activity as directed Keep your appointments as scheduled Take your immunizations and boosters as scheduled If your symptoms worsen call your PCP, if no PCP go to Urgent Care Center or Emergency Room Smoking is Dangerous to Your Health. Avoid second hand smoke Call the 24-hour hour crisis hotline for domestic abuse at Antonella Yang PA-C Dec 25, 2016 9:03 am
[2016-12-25] MEDS ORDERED: WALKER WHEELS/F1 MIS (09:06)
[2016-12-25] MEDS ORDERED: NAPR500T PO (09:08)
[2016-12-25] MEDS ORDERED: CEFU1TAB20 PO (09:09)
--- NOTE | 2016-12-25 09:18 | HHI.PR ---
Subjective Remarks Follow up for syncope, UTI, diarrhea. The patient reports feeling much better today except for some pain and swelling at her left ankle. She is able to bear some weight but requests a walker. She denies any further diarrhea. Denies any lightheadedness, dizziness, chest pain, palpitations, shortness of breath, abdominal or urinary complaints. She wants to go home. Objective Vitals Vital Signs Date Time Temp Pulse Resp B/P Pulse Ox O2 Delivery O2 Flow Rate FiO2 12/25/16 07:27 79 125/76 124/75 12/25/16 07:14 97.9 76 18 122/71 96 12/25/16 05:04 81 12/25/16 03:30 98.0 74 18 138/76 95 133/74 12/25/16 00:00 79 12/24/16 23:09 99.0 77 18 136/81 95 12/24/16 19:17 98.9 85 18 129/72 96 12/24/16 15:49 93 21 12/24/16 13:07 99.0 86 16 108/60 96 103/55 104/61 Result Diagram: 12/24/16 0306 12/24/16 0306 Imaging Last Impressions Head CT 12/24/16253 Signed Impressions: Service Date/Time: December 03:15 - CONCLUSION: Unremarkable CT scan of the brain. Brett Hamilton MD Chest X-Ray 12/24/164 Signed Impressions: Service Date/Time: December 03:06 - CONCLUSION: No acute disease. No significant change has occurred. Brett Hamilton MD Carotid Artery Ultrasound 12/24/16 0000 Signed Impressions: Service Date/Time: December 08:38 - CONCLUSION: No hemodynamically significant stenosis in either carotid artery. Emerson Pillai MD Ankle X-Ray 12/24/16 0000 Signed Impressions: Service Date/Time: December 03:07 - CONCLUSION: Soft tissue swelling along the lateral malleolus. No acute fracture or joint dislocation. Brett Hamilton MD Objective Remarks GENERAL: Well-nourished, well-developed middle aged female patient in [facility]. SKIN: Warm and dry. No rash. HEENT: Normocephalic. Atraumatic. Pupils equal and round. Mucous membranes pink and moist. NECK: Supple. Trachea midline. CARDIOVASCULAR: Regular rate and rhythm. S1, S2 noted. No murmur appreciated. RESPIRATORY: No accessory muscle use. Clear to auscultation. Breath sounds equal bilaterally. GASTROINTESTINAL: Abdomen soft, non-tender, nondistended. Normoactive bowel sounds x4. MUSCULOSKELETAL: No obvious deformities. Extremities without clubbing, cyanosis , or edema. Left ankle edematous with ecchymosis, worse at the lateral malleolus , with pain upon ROM and palpation. NEUROLOGICAL: Awake and alert. No obvious cranial nerve deficits. Motor grossly within normal limits. 5/5 muscle strength in bilateral upper and lower extremities. Normal speech. PSYCHIATRIC: Appropriate mood and affect; insight and judgment normal. Medications and IVs Current Medications Medications (Trade) Dose Ordered Sig/Josue Route Start Time Stop Time Status Last Admin (NS Flush) 2 ml UNSCH PRN IV FLUSH 12/24/16 04:30 (NS Flush) 2 ml BID IV FLUSH 12/24/16 09:00 12/24/16 21:00 Naloxone HCl 0.4 mg 0.4 mg UNSCH PRN IV 12/24/16 04:30 Ceftriaxone Sodium 1000 mg/ Sodium Chloride 100 ml @ 200 mls/hr Q24H IV 12/25/16 05:00 12/25/16 06:47 (NS 1000 ml Inj) 1,000 ml @ 84 mls/hr [id number] IV 12/24/16 05:15 12/25/16 06:34 (D50w (Vial) Inj) 50 ml UNSCH PRN IV 12/24/16 06:00 (Glucagon Inj) 1 mg UNSCH PRN OTHER 12/24/16 06:00 (Lovenox Inj) 40 mg Q24H SQ 12/24/16 09:00 12/24/16 10:54 (Lactinex) 1 tab TID PO 12/24/16 18:00 12/24/16 18:08 A/P Assessment and Plan 56-year-old female with a past medical history of HTN, CHF, DM, asthma with recently diagnosed bronchitis who presented after a syncopal episode Syncope: Suspect vasovagal, likely secondary to recent dehydration from diarrhea and poor oral intake. Possibly BP is over controlled on home antihypertensives. Reviewed: Troponin negative 2. Echocardiogram with mild reduction in systolic function EF 4550 %, with no significant valvular abnormalities. EKG with NSR, no significant change from previous. Carotid U/S with no significant stenosis. Head CT unremarkable. Not orthostatic, but BP is soft. Labs without signs of dehydration. Afebrile with no leukocytosis. -held patient's antihypertensives including lisinopril/HCTZ and Coreg; BP much improved -Given IVF -PT recommends [facility] however unable to arrange with no insurance; patient ambulates well with a walker, case management to assist with obtaining walker -Monitor on telemetry, no acute events -Consult patient's feed and farm management adviser Dr. Velez, cleared for discharge -patient's BP has been well controlled off antihypertensives throughout admission, suspect hypotension contributed to syncope; will discontinue HCTZ and Coreg, and decrease lisinopril to 5mg daily for renal protection with diabetes Diarrhea: Possibly antibiotic associated. C. difficile negative. Start Lactinex. Abnormal UA: UA with evidence of possible UTI. Continue empiric IV Rocephin, changed to cefuroxime at discharge. Follow up urine culture, pending at discharge. Bronchitis: Chest x-ray 4 days ago in the ED and today have been clear. Nebs as needed. Received azithromycin. On Rocephin as above. Symptoms resolved. Diabetes mellitus: Hyperglycemic protocol. Monitor Accu-Cheks. SSI coverage if needed. Hypertension: Currently with hypotension. Hold home lisinopril, HCTZ, carvedilol until BP improves. BP well controlled off antihypertensives; discharged on lisinopril 5mg daily. Mild systolic CHF: Echocardiogram as above, none previous for comparison. Unclear chronicity. Continue carvedilol as BP allows. Cardiology consulted, cleared for discharge. Left Ankle Sprain: xrays reviewed, no acute fracture. Patient has edema/ ecchymosis at left lateral malleolus. Provided RADHA wrap. Recommended elevation and ice. Naproxen prn pain. DVT prophylaxis: SCDs Discharge Planning Discharge patient to home Condition on discharge: Improved Diabetic Diet as tolerated Ad Adriana activity, weightbearing as tolerated Rx written: walker, cefuroxime 500mg bid x3days, naproxen 500mg bid prn pain Follow-up with primary care physician at [facility] within 1 week Attending Statement Patient seen in her bedroom in the presence of her already recommended for discharge by pet nutrition specialist, given recommendations. Examined and okay to discharge from Medicine standpoint. Antonella Yang PA-C Dec 25, 2016 09:18 Sheng Hutchison MD Dec 25, 2016 17:11
[2016-12-25] MEDS ORDERED: ONDA4TAB7 SL (09:56)
[2016-12-25] MEDS ORDERED: PROT40TA PO (09:56)
[2016-12-25] MEDS ORDERED: KETOROLAC TROMETHAMINE 30 MG/ML (IVP) VIAL IV PUSH ONE (10:00)
[2016-12-25] MEDS ORDERED: ONDANSETRON HCL 4 MG/2 ML VIAL IV PUSH PRN (10:00)
[2016-12-25] MEDS ORDERED: PANTOPRAZOLE SOD 40 MG DELAYED RELEASE TAB PO SCH (10:30)
--- NOTE | 2016-12-25 14:52 | EKG ---
Date Performed: 12/24/2016 Time Performed: 16:17:11 PTAGE: 56 years EKG: Sinus rhythm NORMAL ECG PREVIOUS TRACING : 12/24/2016 02.46 Compared to prior tracing no significant change DOCTOR: Sandor Greco Interpretating Date/Time 12/25/2016 14:50:28
== END 2016-12-25 13:25 | disposition home or self-care (01) ==
LOC: NEPC 02:32 → NEDA 04:18 → NEPGCP 05:01
PROVIDERS: ADMIT Internal Medicine; ATTEND Internal Medicine
DX: R55 Syncope and collapse (principal); N39.0 Urinary tract infection, site not specified; S93.402A Sprain of unspecified ligament of left ankle, initial encounter; S00.81XA Abrasion of other part of head, initial encounter; J40 Bronchitis, not specified as acute or chronic; R63.0 Anorexia; R19.7 Diarrhea, unspecified; R42 Dizziness and giddiness; R61 Generalized hyperhidrosis; I95.9 Hypotension, unspecified; M77.32 Calcaneal spur, left foot; M25.571 Pain in right ankle and joints of right foot; M25.572 Pain in left ankle and joints of left foot; I11.0 Hypertensive heart disease with heart failure; I50.20 Unspecified systolic (congestive) heart failure; E11.9 Type 2 diabetes mellitus without complications; J45.909 Unspecified asthma, uncomplicated; E78.5 Hyperlipidemia, unspecified; K21.9 Gastro-esophageal reflux disease without esophagitis; G62.9 Polyneuropathy, unspecified; E66.9 Obesity, unspecified; Z79.899 Other long term (current) drug therapy; Z79.84 Long term (current) use of oral hypoglycemic drugs; W19.XXXA Unspecified fall, initial encounter
CPT/HCPCS: 70450; 71010; 73610; 80053; 81001; 82550; 82948; 83735; 84484; 85025; 85610; 85730; 87086; 87493; 93005; 93306; 93880; 96374; 97162; 99285; G0378; G8987; G8988; J0696; J1650; J1885; J2405; J7030